=== PATIENT | male | born 1950 | race Caucasian/White ===

== ENCOUNTER 2019-01-03 16:07 | Emergency (ER) | payer MEDICARE, OTHER ==
[~2019-01-03] VITALS: Ht 180.3 cm; Wt 99.8 kg
[2019-01-03] MEDS ORDERED: LISINOPRIL10 MG PO (16:36)
[2019-01-03] MEDS ORDERED: ADULT LOW DOSE81 MG PO (16:37)
[2019-01-03] MEDS ORDERED: NORCO 5-325 TA1 EACH PO (23:02)
--- NOTE | 2019-01-04 08:07 | EKG ---
[facility] [address] [facility] [place], [place] [address] Signed Sinus tachycardia Possible Left atrial enlargement Anterior infarct , age undetermined T wave abnormality, consider inferolateral ischemia Abnormal ECG No previous ECGs available Confirmed by CHUCK ALCANTAR MD ([id number] on 01/04/2019 8:07:37 AM Electronically Signed By: CHUCK ALCANTAR MD 01/04/19 0807 PATIENT NAME: BHARATHREINALDOPRIMITIVO ROSEEN Electrocardiogram DATE OF : 54 PHYSICIAN: CHUCK ALCANTAR MD REPORT #: [id number] REPORT IS CONFIDENTIAL AND NOT TO BE RELEASED WITHOUT AUTHORIZATION
== END 2019-01-03 23:09 | disposition home or self-care (01) ==
LOC: ED 16:07
DX: R07.89 Other chest pain (principal); R31.9 Hematuria, unspecified; M54.9 Dorsalgia, unspecified; I10 Essential (primary) hypertension
CPT/HCPCS: 71046; 71260; 74176; 80053; 81001; 84484; 85025; 85379; 85610; 85730; 93005; 93010; 99285-25; J1170; J2405; Q9967